=== PATIENT | male | born 1975 | race Hispanic/Latino ===

== ENCOUNTER 2019-01-20 09:01 | Outpatient (CLI) | payer OTHER ==
--- NOTE | 2019-01-20 09:25 | RAD ---
TWO VIEW CHEST: History: Cough and pneumonia. Asthma, hypertension. Comparison: Portable exam, 03-02-11. FINDINGS: Lung wilks appear clear. No infiltrate. Heart and mediastinum unremarkable. Vascular markings normal . Osseous structures unremarkable. IMPRESSION: Unremarkable chest. POS: [facility] [place]
--- NOTE | 2019-01-20 09:47 | RAD ---
THREE VIEW PARANASAL SINUS SERIES: INDICATION: Chronic pansinusitis. FINDINGS: There is no evidence of a discrete fluid level of the visualized paranasal sinus. Mastoid air cells are clear. No acute osseous abnormality. IMPRESSION: No acute fluid level of the imaged paranasal sinuses. POS: [facility]
== END 2019-01-20 09:02 | disposition home or self-care (01) ==
LOC: BICRAD 09:01
PROVIDERS: ATTEND Family Medicine
DX: J32.4 Chronic pansinusitis (principal); I10 Essential (primary) hypertension; J45.41 Moderate persistent asthma with (acute) exacerbation; J18.9 Pneumonia, unspecified organism; R05 Cough
CPT/HCPCS: 70220; 71046

== ENCOUNTER 2022-03-07 13:21 | Inpatient (IN) | payer OTHER ==
[2022-03-07] MEDS ORDERED: Tranexamic Acid 1,000 MG/10 ML VIAL ONE (13:27)
[2022-03-07] MEDS ORDERED: ceFAZolin (BATCH) 2 GM/100 ML BAG ONE ×2 (13:27→19:46)
[2022-03-07] MEDS ORDERED: Boostrix 0.5 ML (Tdap) VIAL ONE (13:29)
[2022-03-07] MEDS ORDERED: Fentanyl 100 MCG/2 ML VIAL ONE ×2 (13:40→14:33)
[2022-03-07 13:43] LABS: #Eosinphils 0.2 thou/uL (0.0-0.7); #Lymphocytes 3.9 thou/uL (1.20-3.40); #Monocytes 0.8 thou/uL (0.11-0.59); #Neutrophils 14.8 thou/uL (1.40-6.50); %Basophils 0.2 % (0.0-1.0); %Eosinophils 1.2 % (0.0-10.0); %Lymphocytes 19.7 % (21.0-51.0); %Monocytes 4.2 % (0.0-10.0); %Neutrophils 74.6 % (42.0-75.0); Mean Corpuscular HGB CONC 32.5 g/dL (32.0-36.0); Mean Corpuscular Hemoglobin 29.4 pg (27.0-31.0); Mean Corpuscular Volume 90.5 fL (78.0-98.0); Mean Platelet Volume 7.3 fL (7.4-10.4); Platelet Count 311 thou/uL (130-400); RBC Distribution Width 11.8 % (11.5-14.5); Red Blood Cell (RBC) Count 4.74 mill/uL (4.70-6.10); White Blood Cell (WBC) Count 19.9 thou/uL (4.8-10.8)
[2022-03-07 13:53] LABS: INR-International Normal Ratio 1.1; Prothrombin Time 13.9 sec (12.0-14.7)
[2022-03-07 13:54] LABS: PTT 29.3 sec (22.9-36.1)
[2022-03-07 13:59] LABS: ALT (SGPT) 61 U/L (8-55); AST (SGOT) 76 U/L (5-34); Albumin 3.9 g/dL (3.5-5.0); Alkaline Phosphatase 57 U/L (40-110); Anion Gap 14 mmol/L (10-20); BUN (Urea Nitrogen) 16 mg/dL (8.9-20.6); Bilirubin, Total 0.7 mg/dL (0.2-1.2); Calc. Creatinine Clearance 0 mL/min (70-130); Calcium 8.3 mg/dL (7.8-10.44); Carbon Dioxide 22 mmol/L (22-29); Chloride 108 mmol/L (98-107); Globulin 2.2 g/dL (2.4-3.5); Glucose 176 mg/dL (70-105); Lipase 71 U/L (8-78); Magnesium 1.9 mg/dL (1.6-2.6); Potassium 3.6 mmol/L (3.5-5.1); Protein, Total 6.1 g/dL (6.0-8.3); Sodium 140 mmol/L (136-145)
[2022-03-07 14:02] LABS: Acetaminophen Less than 10.0 mcg/mL (10.0-30.0); Alcohol Less than 10 mg/dL (Less than 10); Salicylate Less than 8.0 mg/dL (15.0-30.0)
[2022-03-07] MEDS ORDERED: Ondansetron ODT 4 MG TAB PO PRN (14:11)
[2022-03-07] MEDS ORDERED: Promethazine HCl 25 MG/ML VIAL IM PRN (14:11)
[2022-03-07] MEDS ORDERED: Ondansetron PF 4 MG/2 ML Vial IVP PRN (14:11)
[2022-03-07] MEDS ORDERED: Morphine 2 MG/ML VIAL SLOW IVP PRN (14:11)
[2022-03-07] MEDS ORDERED: hydrALAZINE 20 MG/ML VIAL SLOW IVP PRN (14:11)
[2022-03-07] MEDS ORDERED: Sodium Chloride 0.9% 1,000 ML IV SCH (14:15)
[2022-03-07 14:30] LABS: Bacteria/HPF None Seen HPF (None Seen); Bilirubin Negative (Negative); Blood, Urine 2+ (Negative); Clarity Clear (Clear); Glucose, Urine (Dipstick) 50 mg/dL (Negative); Ketone, Urine Negative (Negative); Leukocyte Negative Leu/uL (Negative); Nitrite Negative (Negative); Protein, Urine (Dipstick) 100 mg/dL (Neg-Trace); RBC/HPF 21-50 HPF (0-3); Specific Gravity, Urine 1.035 (1.002-1.036); Squamous Epithelial 0-3 HPF (0-3); Urobilinogen Normal mg/dL (Less than 2)
[2022-03-07] MEDS ORDERED: Midazolam HCl 2 mg/2 ml Vial ONE (14:33)
[2022-03-07 14:49] LABS: Amphetamine Not Detected (NotDetected); Barbiturates Screen Not Detected (NotDetected); Benzodiazepine Screen Not Detected (NotDetected); Cocaine Metabolite Screen Not Detected (NotDetected); Methadone Not Detected (NotDetected); Methamphetamine Not Detected (NotDetected); Opiate Screen Not Detected (NotDetected); Oxycodone Screen Not Detected (NotDetected); Phencyclidine (PCP) Not Detected (NotDetected); THC/Cannabinoid Screen Not Detected (NotDetected); Tricyclic Screen Not Detected (NotDetected)
[2022-03-07] MEDS ORDERED: Acetaminophen 500 MG TAB PO SCH (15:00)
[2022-03-07 15:11] LABS: SARS-CoV-2 NAA Rapid Test Not Detected (NotDetected)
[2022-03-07] MEDS ORDERED: traMADol HCl 50 MG TAB PO PRN (15:12)
[2022-03-07] MEDS ORDERED: Ketorolac Tromethamine 30 MG/ML VIAL IVP SCH (15:15)
[2022-03-07] MEDS ORDERED: HYDROmorphone 2 MG/ML VIAL ONE (16:10)
[2022-03-07] MEDS ORDERED: ePHEDrine 50 MG/ML VIAL ONE (16:13)
[2022-03-07] MEDS ORDERED: Esmolol 100 MG/10 ML VIAL ONE (16:13)
[2022-03-07] MEDS ORDERED: Rocuronium Bromide 10 MG/ML (10ML VIAL) ONE (16:13)
[2022-03-07] MEDS ORDERED: Vecuronium 10 MG VIAL ONE (16:13)
[2022-03-07] MEDS ORDERED: Ondansetron PF 4 MG/2 ML Vial ONE (16:13)
[2022-03-07] MEDS ORDERED: PHENYLEPHRINE-NS 100 MCG/ML 10 ML SYRINGE ONE ×2 (16:13→22:23)
[2022-03-07] MEDS ORDERED: Lidocaine 1% PF 5 ML VIAL ONE (16:13)
[2022-03-07] MEDS ORDERED: PROPOFOL 200 MG/20 ML VIAL ONE (16:13)
[2022-03-07] MEDS ORDERED: Albumin 5% 1,000 ML ONE (17:44)
[2022-03-07] MEDS ORDERED: Neomycin-Polymyxin 1 ML AMP ONE (19:41)
[2022-03-07] MEDS ORDERED: Gentamicin Sulfate 80 MG in Premix Bag 1 BAG IVPB SCH (19:45)
[2022-03-07] MEDS ORDERED: Phenylephrine 10 MG/ML VIAL ONE (20:53)
[2022-03-07] MEDS ORDERED: Bacitracin Zinc Ointment 30 gm TUBE ONE (21:22)
[2022-03-07] MEDS ORDERED: ceFAZolin (BATCH) 2 GM in Premix Bag 1 BAG IVPB SCH (22:00)
[2022-03-08] MEDS ORDERED: ceFAZolin (BATCH) 2 GM/100 ML BAG ONE (00:02)
[2022-03-08] MEDS ORDERED: fentaNYL Citrate/PF 100 MCG/2 ML SYRINGE ONE (00:40)
[2022-03-08] MEDS ORDERED: Bupivacaine PF 0.5% 30 ML VIAL ONE (01:28)
[2022-03-08] MEDS ORDERED: Ondansetron HCl/PF 4 MG/2 ML Vial IVP PRN (02:51)
[2022-03-08] MEDS ORDERED: fentaNYL Citrate/PF 2,000 MCG in Sodium Chloride 0.9% 60 ML IV PRN (02:51)
[2022-03-08] MEDS ORDERED: Promethazine HCl 25 MG/ML VIAL IM PRN ×2 (02:51)
[2022-03-08] MEDS ORDERED: Promethazine HCl 25 MG/ML VIAL IVPB PRN (02:51)
[2022-03-08] MEDS ORDERED: diphenhydrAMINE 50 MG/ML VIAL IM PRN (02:51)
[2022-03-08] MEDS ORDERED: diphenhydrAMINE 50 MG/ML VIAL IVP PRN (02:51)
[2022-03-08] MEDS ORDERED: diphenhydrAMINE 25 MG CAP PO PRN (02:51)
[2022-03-08] MEDS ORDERED: Zolpidem Tartrate 5 MG TAB PO PRN (02:51)
[2022-03-08] MEDS ORDERED: Ondansetron PF 4 MG/2 ML Vial IVP PRN (02:51)
[2022-03-08] MEDS ORDERED: Naloxone HCl 0.4 mg/ml Vial IV PRN (02:51)
[2022-03-08] MEDS ORDERED: Communication Order-Pharmacy FS SCH (03:00)
[2022-03-08] MEDS ORDERED: Fentanyl 100 MCG/2 ML VIAL ONE (03:18)
[2022-03-08] MEDS ORDERED: Ketorolac Tromethamine 30 MG/ML VIAL ONE (03:25)
[2022-03-08] MEDS: Ketorolac Tromethamine 30 MG/ML VIAL IVP SCH ×5 (03:35→22:09)
[2022-03-08] MEDS ORDERED: ceFAZolin 2 GM/Dextrose 50 ML 2 GM in Premix Bag 1 BAG IVPB SCH (04:00)
[2022-03-08 04:06] LABS: INR-International Normal Ratio 1.2; PTT 30.8 sec (22.9-36.1); Prothrombin Time 15.2 sec (12.0-14.7)
[2022-03-08 04:07] LABS: Anion Gap 16 mmol/L (10-20); BUN (Urea Nitrogen) 18 mg/dL (8.9-20.6); Calc. Creatinine Clearance 0 mL/min (70-130); Calcium 7.8 mg/dL (7.8-10.44); Carbon Dioxide 19 mmol/L (22-29); Chloride 109 mmol/L (98-107); Glucose 185 mg/dL (70-105); Magnesium 1.7 mg/dL (1.6-2.6); Phosphorus 3.1 mg/dL (2.3-4.7); Potassium 4.3 mmol/L (3.5-5.1); Sodium 140 mmol/L (136-145)
[2022-03-08 04:10] LABS: #Lymphocytes 0.8 thou/uL (1.20-3.40); #Monocytes 0.6 thou/uL (0.11-0.59); #Neutrophils 7.5 thou/uL (1.40-6.50); %Basophils 0.1 % (0.0-1.0); %Eosinophils 0.2 % (0.0-10.0); %Lymphocytes 9.2 % (21.0-51.0); %Monocytes 6.8 % (0.0-10.0); %Neutrophils 83.7 % (42.0-75.0); Hemoglobin 11.4 g/dL (14.0-18.0); Mean Corpuscular HGB CONC 33.5 g/dL (32.0-36.0); Mean Corpuscular Hemoglobin 30.2 pg (27.0-31.0); Mean Corpuscular Volume 90.3 fL (78.0-98.0); Mean Platelet Volume 7.2 fL (7.4-10.4); Platelet Count 195 thou/uL (130-400); RBC Distribution Width 12.2 % (11.5-14.5); Red Blood Cell (RBC) Count 3.78 mill/uL (4.70-6.10); White Blood Cell (WBC) Count 8.9 thou/uL (4.8-10.8)
[2022-03-08 04:19] LABS: Lactic Acid 5.4 mmol/L (0.5-2.2)
[2022-03-08] MEDS ORDERED: Magnesium 2 GM/50 ML(in water) 2 GM in Premix Bag 1 BAG IVPB SCH (04:30)
[2022-03-08] MEDS: Sodium Chloride 0.9% 1,000 ML IV SCH ×3 (04:35→12:53)
[2022-03-08] MEDS: Acetaminophen 500 MG TAB PO SCH ×4 (04:35→09:37)
[2022-03-08] MEDS: Gabapentin 300 MG CAP PO SCH ×4 (04:36→22:07)
[2022-03-08] MEDS: Famotidine/PF 20 mg/2ml Vial SLOW IVP SCH ×2 (04:36→09:36)
[2022-03-08] MEDS: tiZANidine HCl 4 MG TAB PO SCH ×3 (04:37→22:08)
[2022-03-08] MEDS: Senokot S 8.6-50 MG TAB PO SCH ×3 (04:37→22:08)
[2022-03-08] MEDS ORDERED: Sodium Chloride 0.9% 1,000 ML IV SCH ×2 (04:45→13:00)
[2022-03-08] MEDS ORDERED: Sodium Phosphate 15 MMOL in Sodium Chloride 0.9% 250 ML 250 ML IVPB SCH (05:00)
[2022-03-08] MEDS: ceFAZolin (BATCH) 2 GM in Premix Bag 1 BAG IVPB SCH ×3 (05:01→22:07)
[2022-03-08 07:48] VITALS: BMI 38.5
[2022-03-08] MEDS: Polyethylene Glycol 3350 17 GM Packet PO SCH (09:35)
[2022-03-08 12:45] LABS: Lactic Acid 1.6 mmol/L (0.5-2.2)
[2022-03-08] MEDS ORDERED: Lactated Ringer's 1,000 ML IV SCH (13:00)
[2022-03-08] MEDS ORDERED: traMADol HCl 50 MG TAB PO PRN (14:16)
[2022-03-08] MEDS: Acetaminophen 325 MG TAB PO SCH ×2 (15:16→22:08)
[2022-03-08 16:06] LABS: #Lymphocytes 1.2 thou/uL (1.20-3.40); #Monocytes 0.7 thou/uL (0.11-0.59); #Neutrophils 5.2 thou/uL (1.40-6.50); %Basophils 0.3 % (0.0-1.0); %Eosinophils 0.2 % (0.0-10.0); %Lymphocytes 16.9 % (21.0-51.0); %Monocytes 9.8 % (0.0-10.0); %Neutrophils 72.7 % (42.0-75.0); Hemoglobin 9.7 g/dL (14.0-18.0); Mean Corpuscular Hemoglobin 30.3 pg (27.0-31.0); Mean Platelet Volume 7.2 fL (7.4-10.4); Platelet Count 144 thou/uL (130-400); RBC Distribution Width 12.1 % (11.5-14.5); White Blood Cell (WBC) Count 7.1 thou/uL (4.8-10.8)
[2022-03-08 16:25] LABS: Lactic Acid 2.7 mmol/L (0.5-2.2)
[2022-03-08 16:32] LABS: Anion Gap 13 mmol/L (10-20); BUN (Urea Nitrogen) 17 mg/dL (8.9-20.6); Calc. Creatinine Clearance 173 mL/min (70-130); Calcium 7.5 mg/dL (7.8-10.44); Carbon Dioxide 21 mmol/L (22-29); Chloride 110 mmol/L (98-107); Glucose 116 mg/dL (70-105); Magnesium 2.2 mg/dL (1.6-2.6); Phosphorus 2.9 mg/dL (2.3-4.7); Potassium 3.8 mmol/L (3.5-5.1); Sodium 140 mmol/L (136-145)
[2022-03-08 16:45] LABS: CK (CPK) 6150 U/L (30-200)
[2022-03-08] MEDS ORDERED: Sodium Bicarbonate 100 MEQ in Dextrose 5% in Water 1,000 ML IV SCH (17:15)
[2022-03-08] MEDS: traMADol HCl 50 MG TAB PO SCH (18:04)
[2022-03-08] MEDS: Famotidine 20 MG TAB PO SCH (22:08)
[2022-03-09] MEDS: traMADol HCl 50 MG TAB PO SCH ×5 (00:49→20:09)
[2022-03-09] MEDS: Acetaminophen 325 MG TAB PO SCH ×4 (03:10→21:13)
[2022-03-09] MEDS: Ketorolac Tromethamine 30 MG/ML VIAL IVP SCH ×4 (03:11→20:11)
[2022-03-09 05:38] LABS: #Eosinphils 0.1 thou/uL (0.0-0.7); #Lymphocytes 1.2 thou/uL (1.20-3.40); #Monocytes 0.6 thou/uL (0.11-0.59); #Neutrophils 6.4 thou/uL (1.40-6.50); %Basophils 0.2 % (0.0-1.0); %Eosinophils 1.2 % (0.0-10.0); %Lymphocytes 14.5 % (21.0-51.0); %Monocytes 7.2 % (0.0-10.0); %Neutrophils 76.9 % (42.0-75.0); Hemoglobin 8.8 g/dL (14.0-18.0); Mean Corpuscular HGB CONC 32.6 g/dL (32.0-36.0); Mean Corpuscular Volume 92.1 fL (78.0-98.0); Mean Platelet Volume 7.6 fL (7.4-10.4); Platelet Count 141 thou/uL (130-400); RBC Distribution Width 12.4 % (11.5-14.5); Red Blood Cell (RBC) Count 2.93 mill/uL (4.70-6.10); White Blood Cell (WBC) Count 8.3 thou/uL (4.8-10.8)
[2022-03-09] MEDS ORDERED: Morphine 2 MG/ML VIAL SLOW IVP PRN (06:00)
[2022-03-09 06:16] LABS: ALT (SGPT) 50 U/L (8-55); AST (SGOT) 121 U/L (5-34); Albumin 3.2 g/dL (3.5-5.0); Alkaline Phosphatase 43 U/L (40-110); Bilirubin, Direct 0.4 mg/dL (0.1-0.3); Bilirubin, Total 0.9 mg/dL (0.2-1.2)
[2022-03-09 06:26] LABS: CK (CPK) 7103 U/L (30-200)
[2022-03-09 06:31] LABS: Anion Gap 8 mmol/L (10-20); BUN (Urea Nitrogen) 15 mg/dL (8.9-20.6); Calc. Creatinine Clearance 210 mL/min (70-130); Calcium 6.9 mg/dL (7.8-10.44); Carbon Dioxide 27 mmol/L (22-29); Chloride 107 mmol/L (98-107); Glucose 131 mg/dL (70-105); Magnesium 2.2 mg/dL (1.6-2.6); Potassium 3.4 mmol/L (3.5-5.1); Sodium 139 mmol/L (136-145)
[2022-03-09] MEDS ORDERED: Lactated Ringer's 1,000 ML IV SCH (06:45)
[2022-03-09] MEDS ORDERED: Potassium Phosphate 30 MMOL in Sodium Chloride 0.9% 250 ML 250 ML IVPB SCH (08:00)
[2022-03-09] MEDS ORDERED: Potassium Chloride 10 MEQ in Premix Bag 1 BAG IVPB SCH (08:00)
[2022-03-09] MEDS ORDERED: Potassium Chloride 20 MEQ in Premix Bag 1 BAG IVPB SCH (08:00)
[2022-03-09] MEDS: Senokot S 8.6-50 MG TAB PO SCH ×2 (08:36→20:13)
[2022-03-09] MEDS: Ascorbic Acid 500 mg Chewable Tablet PO SCH (08:36)
[2022-03-09] MEDS: tiZANidine HCl 4 MG TAB PO SCH ×2 (08:36→20:13)
[2022-03-09] MEDS: Gabapentin 300 MG CAP PO SCH ×3 (08:37→20:11)
[2022-03-09] MEDS: Famotidine 20 MG TAB PO SCH ×2 (08:37→20:10)
[2022-03-09] MEDS: Ferrous Sulfate 325 MG TAB PO SCH (08:37)
[2022-03-09] MEDS: Polyethylene Glycol 3350 17 GM Packet PO SCH (08:39)
[2022-03-09] MEDS: ceFAZolin (BATCH) 2 GM in Premix Bag 1 BAG IVPB SCH ×3 (08:41→23:34)
[2022-03-09] MEDS: Enoxaparin Sodium 40 MG/0.4 ML SYRINGE SC SCH (09:00)
[2022-03-09] MEDS ORDERED: Furosemide 20 MG/2 ML VIAL SLOW IVP SCH (09:00)
[2022-03-09] MEDS ORDERED: Potassium Chloride 20 MEQ TAB PO SCH (10:30)
[2022-03-09] MEDS: Lactated Ringer's 1,000 ML IV SCH ×2 (16:00→23:32)
[2022-03-09 17:04] LABS: Anion Gap 15 mmol/L (10-20); BUN (Urea Nitrogen) 17 mg/dL (8.9-20.6); Calc. Creatinine Clearance 193 mL/min (70-130); Calcium 8.3 mg/dL (7.8-10.44); Carbon Dioxide 23 mmol/L (22-29); Chloride 103 mmol/L (98-107); Glucose 117 mg/dL (70-105); Magnesium 2.3 mg/dL (1.6-2.6); Phosphorus 2.8 mg/dL (2.3-4.7); Potassium 4.2 mmol/L (3.5-5.1); Sodium 137 mmol/L (136-145)
[2022-03-09] MEDS: Tamsulosin HCl 0.4 MG CAP PO SCH (20:13)
[2022-03-10] MEDS: traMADol HCl 50 MG TAB PO SCH ×4 (01:52→20:13)
[2022-03-10] MEDS: Ketorolac Tromethamine 30 MG/ML VIAL IVP SCH (01:52)
[2022-03-10] MEDS: Acetaminophen 325 MG TAB PO SCH ×3 (04:20→18:46)
[2022-03-10] MEDS ORDERED: Ketorolac Tromethamine 30 MG/ML VIAL IVP PRN (07:34)
[2022-03-10] MEDS ORDERED: Morphine 2 MG/ML VIAL SLOW IVP SCH (07:35)
[2022-03-10] MEDS ORDERED: Ketorolac Tromethamine 30 MG/ML VIAL IVP SCH (07:45)
[2022-03-10] MEDS: ceFAZolin (BATCH) 2 GM in Premix Bag 1 BAG IVPB SCH ×2 (08:55→16:00)
[2022-03-10] MEDS ORDERED: Lisinopril 20 MG TAB PO SCH ×2 (09:00)
[2022-03-10] MEDS: Ferrous Sulfate 325 MG TAB PO SCH (09:01)
[2022-03-10] MEDS: Ascorbic Acid 500 mg Chewable Tablet PO SCH (09:01)
[2022-03-10] MEDS: Famotidine 20 MG TAB PO SCH ×2 (09:02→20:14)
[2022-03-10] MEDS: Gabapentin 300 MG CAP PO SCH ×3 (09:02→20:14)
[2022-03-10] MEDS: Polyethylene Glycol 3350 17 GM Packet PO SCH (09:04)
[2022-03-10] MEDS: Senokot S 8.6-50 MG TAB PO SCH ×2 (09:06→20:15)
[2022-03-10] MEDS: Lactated Ringer's 1,000 ML IV SCH ×3 (09:06→18:47)
[2022-03-10] MEDS: Enoxaparin Sodium 40 MG/0.4 ML SYRINGE SC SCH (09:31)
[2022-03-10] MEDS ORDERED: Furosemide 40 MG/4 ML VIAL SLOW IVP SCH ×2 (09:45→18:00)
[2022-03-10] MEDS: tiZANidine HCl 4 MG TAB PO SCH ×2 (10:03→18:45)
[2022-03-10 12:08] LABS: #Eosinphils 0.2 thou/uL (0.0-0.7); #Lymphocytes 1.3 thou/uL (1.20-3.40); #Monocytes 0.4 thou/uL (0.11-0.59); #Neutrophils 6.4 thou/uL (1.40-6.50); %Basophils 0.2 % (0.0-1.0); %Eosinophils 2.4 % (0.0-10.0); %Monocytes 5.1 % (0.0-10.0); %Neutrophils 77.3 % (42.0-75.0); Hemoglobin 8.8 g/dL (14.0-18.0); Mean Corpuscular HGB CONC 33.3 g/dL (32.0-36.0); Mean Corpuscular Hemoglobin 30.6 pg (27.0-31.0); Mean Corpuscular Volume 91.8 fL (78.0-98.0); Mean Platelet Volume 7.7 fL (7.4-10.4); Platelet Count 150 thou/uL (130-400); Red Blood Cell (RBC) Count 2.86 mill/uL (4.70-6.10); White Blood Cell (WBC) Count 8.3 thou/uL (4.8-10.8)
[2022-03-10 12:21] LABS: Anion Gap 12 mmol/L (10-20); BUN (Urea Nitrogen) 14 mg/dL (8.9-20.6); Calc. Creatinine Clearance 204 mL/min (70-130); Calcium 8.2 mg/dL (7.8-10.44); Carbon Dioxide 28 mmol/L (22-29); Chloride 100 mmol/L (98-107); Glucose 141 mg/dL (70-105); Magnesium 2.1 mg/dL (1.6-2.6); Phosphorus 2.1 mg/dL (2.3-4.7); Potassium 3.7 mmol/L (3.5-5.1); Sodium 136 mmol/L (136-145)
[2022-03-10 12:30] LABS: CK (CPK) 5846 U/L (30-200)
[2022-03-10] MEDS: Morphine 2 MG/ML VIAL SLOW IVP PRN (16:14)
[2022-03-10] MEDS ORDERED: Potassium Chloride 20 MEQ TAB PO SCH (17:00)
[2022-03-10 17:39] LABS: Anion Gap 14 mmol/L (10-20); BUN (Urea Nitrogen) 13 mg/dL (8.9-20.6); Calc. Creatinine Clearance 193 mL/min (70-130); Calcium 8.1 mg/dL (7.8-10.44); Carbon Dioxide 27 mmol/L (22-29); Chloride 99 mmol/L (98-107); Glucose 119 mg/dL (70-105); Magnesium 2.2 mg/dL (1.6-2.6); Phosphorus 2.5 mg/dL (2.3-4.7); Sodium 136 mmol/L (136-145)
[2022-03-10] MEDS ORDERED: methylPREDNISolone Sod Succ 40 MG VIAL IVP ONE (18:00)
[2022-03-10] MEDS: Acetaminophen/Codeine 30-300mg Tablet PO SCH ×2 (18:08→23:47)
[2022-03-10] MEDS: Tamsulosin HCl 0.4 MG CAP PO SCH (20:15)
[2022-03-10] MEDS ORDERED: tiZANidine HCl 4 MG TAB PO SCH (21:00)
[2022-03-11] MEDS: ceFAZolin (BATCH) 2 GM in Premix Bag 1 BAG IVPB SCH ×4 (01:01→23:43)
[2022-03-11] MEDS: traMADol HCl 50 MG TAB PO SCH (02:19)
[2022-03-11] MEDS: Acetaminophen/Codeine 30-300mg Tablet PO SCH ×4 (05:48→23:42)
[2022-03-11 06:12] LABS: #Lymphocytes 0.6 thou/uL (1.20-3.40); #Monocytes 0.4 thou/uL (0.11-0.59); #Neutrophils 5.1 thou/uL (1.40-6.50); %Basophils 0.4 % (0.0-1.0); %Eosinophils 0.3 % (0.0-10.0); %Monocytes 5.9 % (0.0-10.0); %Neutrophils 83.4 % (42.0-75.0); Hemoglobin 8.1 g/dL (14.0-18.0); Mean Corpuscular HGB CONC 33.1 g/dL (32.0-36.0); Mean Corpuscular Hemoglobin 30.3 pg (27.0-31.0); Mean Corpuscular Volume 91.4 fL (78.0-98.0); Mean Platelet Volume 7.5 fL (7.4-10.4); Platelet Count 176 thou/uL (130-400); RBC Distribution Width 11.9 % (11.5-14.5); Red Blood Cell (RBC) Count 2.68 mill/uL (4.70-6.10); White Blood Cell (WBC) Count 6.1 thou/uL (4.8-10.8)
[2022-03-11 06:33] LABS: Anion Gap 13 mmol/L (10-20); BUN (Urea Nitrogen) 14 mg/dL (8.9-20.6); Calc. Creatinine Clearance 222 mL/min (70-130); Carbon Dioxide 28 mmol/L (22-29); Chloride 99 mmol/L (98-107); Glucose 144 mg/dL (70-105); Magnesium 2.2 mg/dL (1.6-2.6); Phosphorus 2.8 mg/dL (2.3-4.7); Potassium 4.6 mmol/L (3.5-5.1); Sodium 135 mmol/L (136-145)
[2022-03-11] MEDS ORDERED: tiZANidine HCl 4 MG TAB PO PRN (07:52)
[2022-03-11] MEDS ORDERED: Furosemide 40 MG/4 ML VIAL SLOW IVP SCH (08:00)
[2022-03-11] MEDS: Enoxaparin Sodium 40 MG/0.4 ML SYRINGE SC SCH (08:38)
[2022-03-11] MEDS: Ascorbic Acid 500 mg Chewable Tablet PO SCH ×2 (08:38→21:23)
[2022-03-11] MEDS: Gabapentin 300 MG CAP PO SCH ×3 (08:40→21:23)
[2022-03-11] MEDS: traMADol HCl 50 MG TAB PO PRN (08:40)
[2022-03-11] MEDS: Famotidine 20 MG TAB PO SCH ×2 (08:41→21:23)
[2022-03-11] MEDS: Senokot S 8.6-50 MG TAB PO SCH ×2 (08:41→19:31)
[2022-03-11] MEDS: Ferrous Sulfate 325 MG TAB PO SCH ×2 (08:41→18:21)
[2022-03-11] MEDS: Polyethylene Glycol 3350 17 GM Packet PO SCH (10:53)
[2022-03-11] MEDS: Morphine 2 MG/ML VIAL SLOW IVP PRN (11:01)
[2022-03-11] MEDS ORDERED: Ketorolac Tromethamine 30 MG/ML VIAL IVP SCH (12:00)
[2022-03-11] MEDS: Tamsulosin HCl 0.4 MG CAP PO SCH (21:23)
[2022-03-11] MEDS: tiZANidine HCl 4 MG TAB PO SCH (21:23)
[2022-03-11] MEDS: Ibuprofen 200 MG TAB PO SCH (21:43)
[2022-03-12] MEDS: Ibuprofen 200 MG TAB PO SCH ×3 (04:30→21:14)
[2022-03-12] MEDS: Acetaminophen/Codeine 30-300mg Tablet PO SCH ×4 (04:31→23:47)
[2022-03-12] MEDS: Morphine 2 MG/ML VIAL SLOW IVP PRN (04:31)
[2022-03-12 05:25] LABS: Anion Gap 15 mmol/L (10-20); BUN (Urea Nitrogen) 18 mg/dL (8.9-20.6); Calc. Creatinine Clearance 225 mL/min (70-130); Calcium 8.1 mg/dL (7.8-10.44); Carbon Dioxide 20 mmol/L (22-29); Chloride 100 mmol/L (98-107); Glucose 115 mg/dL (70-105); Magnesium 2.1 mg/dL (1.6-2.6); Phosphorus 3.6 mg/dL (2.3-4.7); Sodium 131 mmol/L (136-145)
[2022-03-12 06:41] LABS: #Eosinphils 0.3 thou/uL (0.0-0.7); #Monocytes 0.9 thou/uL (0.11-0.59); #Neutrophils 6.3 thou/uL (1.40-6.50); %Basophils 0.3 % (0.0-1.0); %Eosinophils 3.2 % (0.0-10.0); %Lymphocytes 20.8 % (21.0-51.0); %Monocytes 9.1 % (0.0-10.0); %Neutrophils 66.5 % (42.0-75.0); Hemoglobin 8.8 g/dL (14.0-18.0); Mean Corpuscular HGB CONC 32.6 g/dL (32.0-36.0); Mean Corpuscular Hemoglobin 30.4 pg (27.0-31.0); Mean Corpuscular Volume 93.3 fL (78.0-98.0); Mean Platelet Volume 6.8 fL (7.4-10.4); Platelet Count 238 thou/uL (130-400); RBC Distribution Width 12.3 % (11.5-14.5); White Blood Cell (WBC) Count 9.5 thou/uL (4.8-10.8)
[2022-03-12] MEDS: traMADol HCl 50 MG TAB PO SCH (07:40)
[2022-03-12] MEDS: Famotidine 20 MG TAB PO SCH ×2 (08:35→21:08)
[2022-03-12] MEDS: Ferrous Sulfate 325 MG TAB PO SCH ×3 (08:35→21:08)
[2022-03-12] MEDS: Enoxaparin Sodium 40 MG/0.4 ML SYRINGE SC SCH (08:35)
[2022-03-12] MEDS: Gabapentin 300 MG CAP PO SCH ×3 (08:36→21:08)
[2022-03-12] MEDS: traMADol HCl 50 MG TAB PO PRN ×2 (08:36→15:29)
[2022-03-12] MEDS: tiZANidine HCl 4 MG TAB PO SCH ×2 (08:37→21:13)
[2022-03-12] MEDS: Ascorbic Acid 500 mg Chewable Tablet PO SCH ×2 (08:37→21:08)
[2022-03-12] MEDS: Senokot S 8.6-50 MG TAB PO SCH ×2 (08:37→21:13)
[2022-03-12] MEDS: Polyethylene Glycol 3350 17 GM Packet PO SCH (08:37)
[2022-03-12] MEDS ORDERED: Lisinopril 20 MG TAB PO SCH (09:00)
[2022-03-12] MEDS: ceFAZolin (BATCH) 2 GM in Premix Bag 1 BAG IVPB SCH (16:52)
[2022-03-12] MEDS: cloNIDine 0.1 MG TAB PO SCH ×2 (17:59→23:47)
[2022-03-12] MEDS: Lisinopril 20 MG TAB PO SCH (21:10)
[2022-03-12] MEDS: Tamsulosin HCl 0.4 MG CAP PO SCH (21:13)
[2022-03-13] MEDS: traMADol HCl 50 MG TAB PO PRN (00:19)
[2022-03-13] MEDS: Acetaminophen/Codeine 30-300mg Tablet PO SCH ×4 (05:31→23:04)
[2022-03-13] MEDS: cloNIDine 0.1 MG TAB PO SCH ×3 (05:31→21:31)
[2022-03-13] MEDS: Ibuprofen 200 MG TAB PO SCH ×3 (05:32→21:31)
[2022-03-13] MEDS: Ascorbic Acid 500 mg Chewable Tablet PO SCH ×2 (08:19→21:28)
[2022-03-13] MEDS: Gabapentin 300 MG CAP PO SCH ×3 (08:19→21:29)
[2022-03-13] MEDS: tiZANidine HCl 4 MG TAB PO SCH ×2 (08:19→21:32)
[2022-03-13] MEDS: Famotidine 20 MG TAB PO SCH ×2 (08:20→21:29)
[2022-03-13] MEDS: Lisinopril 20 MG TAB PO SCH ×2 (08:20→21:29)
[2022-03-13] MEDS: Senokot S 8.6-50 MG TAB PO SCH ×2 (08:20→21:33)
[2022-03-13] MEDS: Enoxaparin Sodium 40 MG/0.4 ML SYRINGE SC SCH (08:22)
[2022-03-13] MEDS: Ferrous Sulfate 325 MG TAB PO SCH ×2 (08:27→21:29)
[2022-03-13] MEDS: Polyethylene Glycol 3350 17 GM Packet PO SCH (08:29)
[2022-03-13] MEDS: Tamsulosin HCl 0.4 MG CAP PO SCH (21:29)
[2022-03-14] MEDS: Acetaminophen/Codeine 30-300mg Tablet PO SCH ×3 (05:28→17:57)
[2022-03-14] MEDS: Ibuprofen 200 MG TAB PO SCH ×3 (05:29→21:05)
[2022-03-14] MEDS ORDERED: Lorazepam 0.5 MG TAB PO PRN (08:55)
[2022-03-14] MEDS: Gabapentin 300 MG CAP PO SCH ×3 (10:35→21:09)
[2022-03-14] MEDS: Senokot S 8.6-50 MG TAB PO SCH ×2 (10:36→21:08)
[2022-03-14] MEDS: Famotidine 20 MG TAB PO SCH ×2 (10:36→21:05)
[2022-03-14] MEDS: cloNIDine 0.1 MG TAB PO SCH ×2 (10:37→21:08)
[2022-03-14] MEDS: tiZANidine HCl 4 MG TAB PO SCH ×2 (10:37→21:09)
[2022-03-14] MEDS: Enoxaparin Sodium 40 MG/0.4 ML SYRINGE SC SCH (10:37)
[2022-03-14] MEDS: Lisinopril 20 MG TAB PO SCH ×2 (10:37→21:09)
[2022-03-14] MEDS: Polyethylene Glycol 3350 17 GM Packet PO SCH (10:37)
[2022-03-14] MEDS: Ferrous Sulfate 325 MG TAB PO SCH ×2 (12:11→21:07)
[2022-03-14] MEDS: Ascorbic Acid 500 mg Chewable Tablet PO SCH ×2 (12:12→21:05)
[2022-03-14 12:13] LABS: SARS-CoV-2 PCR by NAA Indeterminate (NotDetected)
[2022-03-14] MEDS ORDERED: Preparation H HC 1% Cream 26 GM TUBE TOP SCH (21:00)
[2022-03-14] MEDS: Tamsulosin HCl 0.4 MG CAP PO SCH (21:07)
[2022-03-14] MEDS: traMADol HCl 50 MG TAB PO PRN (21:10)
[2022-03-14] MEDS: Hydrocortisone 1% Cream 30 GM TUBE TOP SCH (21:12)
[2022-03-15] MEDS: Acetaminophen/Codeine 30-300mg Tablet PO SCH ×4 (00:23→18:28)
[2022-03-15] MEDS: Ibuprofen 200 MG TAB PO SCH ×3 (05:23→22:05)
[2022-03-15 07:21] LABS: Hemoglobin 9.8 g/dL (14.0-18.0); Mean Corpuscular HGB CONC 32.9 g/dL (32.0-36.0); Mean Corpuscular Hemoglobin 30.5 pg (27.0-31.0); Mean Corpuscular Volume 92.7 fL (78.0-98.0); Mean Platelet Volume 6.7 fL (7.4-10.4); Platelet Count 330 thou/uL (130-400); RBC Distribution Width 13.2 % (11.5-14.5); Red Blood Cell (RBC) Count 3.21 mill/uL (4.70-6.10); White Blood Cell (WBC) Count 10.3 thou/uL (4.8-10.8)
[2022-03-15 07:42] LABS: Anion Gap 13 mmol/L (10-20); BUN (Urea Nitrogen) 20 mg/dL (8.9-20.6); Calc. Creatinine Clearance 236 mL/min (70-130); Calcium 8.8 mg/dL (7.8-10.44); Carbon Dioxide 23 mmol/L (22-29); Chloride 103 mmol/L (98-107); Glucose 104 mg/dL (70-105); Magnesium 1.9 mg/dL (1.6-2.6); Phosphorus 3.9 mg/dL (2.3-4.7); Potassium 4.2 mmol/L (3.5-5.1); Sodium 135 mmol/L (136-145)
[2022-03-15] MEDS: Gabapentin 300 MG CAP PO SCH ×3 (08:24→22:03)
[2022-03-15] MEDS: Ascorbic Acid 500 mg Chewable Tablet PO SCH ×2 (08:24→22:06)
[2022-03-15] MEDS: Enoxaparin Sodium 40 MG/0.4 ML SYRINGE SC SCH (08:24)
[2022-03-15] MEDS: tiZANidine HCl 4 MG TAB PO SCH ×2 (08:24→22:06)
[2022-03-15] MEDS: cloNIDine 0.1 MG TAB PO SCH (08:25)
[2022-03-15 08:28] LABS: Band 13 % (5-11); Eosinophils 4 % (0-10); Lymphocytes 24 % (21-51); MDiff Complete? YES; Metamyelocyte 5 % (0-0); Monocytes 8 % (0-10); Myelocyte 1 % (0-0); Neutrophil 45 % (42-75); Platelet Morphology Comment Appears Adequate; Polychromasia SLIGHT = 2-3 cells (100X) (0-2/hpf)
[2022-03-15] MEDS: Ferrous Sulfate 325 MG TAB PO SCH ×2 (08:28→22:06)
[2022-03-15] MEDS: Lisinopril 20 MG TAB PO SCH ×2 (08:28→22:07)
[2022-03-15] MEDS: Famotidine 20 MG TAB PO SCH ×2 (08:28→22:02)
[2022-03-15] MEDS: Polyethylene Glycol 3350 17 GM Packet PO SCH (08:49)
[2022-03-15] MEDS: Senokot S 8.6-50 MG TAB PO SCH ×2 (08:50→22:05)
[2022-03-15] MEDS: Amlodipine 5 MG TAB PO SCH (10:21)
[2022-03-15] MEDS: Hydrocortisone 1% Cream 30 GM TUBE TOP SCH ×2 (10:22→22:08)
[2022-03-15] MEDS ORDERED: cloNIDine 0.1 MG TAB PO SCH (21:00)
[2022-03-15] MEDS: traMADol HCl 50 MG TAB PO PRN (22:04)
[2022-03-15] MEDS: Tamsulosin HCl 0.4 MG CAP PO SCH (22:06)
[2022-03-16] MEDS: Acetaminophen/Codeine 30-300mg Tablet PO SCH ×3 (00:58→11:55)
[2022-03-16] MEDS: traMADol HCl 50 MG TAB PO PRN (03:53)
[2022-03-16] MEDS: Ibuprofen 200 MG TAB PO SCH ×2 (04:05→14:26)
[2022-03-16] MEDS: tiZANidine HCl 4 MG TAB PO SCH (08:33)
[2022-03-16] MEDS: Ascorbic Acid 500 mg Chewable Tablet PO SCH (08:33)
[2022-03-16] MEDS: Lisinopril 20 MG TAB PO SCH (08:33)
[2022-03-16] MEDS: Enoxaparin Sodium 40 MG/0.4 ML SYRINGE SC SCH (08:33)
[2022-03-16] MEDS: Famotidine 20 MG TAB PO SCH (08:34)
[2022-03-16] MEDS: Gabapentin 300 MG CAP PO SCH ×2 (08:34→15:46)
[2022-03-16] MEDS: Ferrous Sulfate 325 MG TAB PO SCH (08:34)
[2022-03-16] MEDS: Amlodipine 5 MG TAB PO SCH (08:34)
[2022-03-16] MEDS: Polyethylene Glycol 3350 17 GM Packet PO SCH (08:35)
[2022-03-16] MEDS: Hydrocortisone 1% Cream 30 GM TUBE TOP SCH (08:36)
[2022-03-16] MEDS: Senokot S 8.6-50 MG TAB PO SCH (08:41)
[2022-03-16 11:36] VITALS: TEMP 98
[2022-03-16 15:37] VITALS: BP 148/85
[2022-03-16] MEDS ORDERED: Aspirin 81 mg Enteric Coated Tablet PO SCH (21:00)
== END 2022-03-16 15:15 | DRG 956 ==
LOC: ERS 13:21 → SDC 16:07 → SURG B 03-08 04:21
PROVIDERS: ADMIT Specialist; ATTEND Specialist
PROC: 0QS906Z Reposition Left Femoral Shaft with Intramedullary Internal Fixation Device, Open Approach (ICD-10-PCS; principal; 2022-03-07)
PROC: 0PSG06Z Reposition Left Humeral Shaft with Intramedullary Internal Fixation Device, Open Approach (ICD-10-PCS; 2022-03-07)
PROC: 0PSL04Z Reposition Left Ulna with Internal Fixation Device, Open Approach (ICD-10-PCS; 2022-03-07)
PROC: 0PSJ04Z Reposition Left Radius with Internal Fixation Device, Open Approach (ICD-10-PCS; 2022-03-07)
PROC: 0PSQ04Z Reposition Left Metacarpal with Internal Fixation Device, Open Approach (ICD-10-PCS; 2022-03-07)
PROC: 0QS706Z Reposition Left Upper Femur with Intramedullary Internal Fixation Device, Open Approach (ICD-10-PCS; 2022-03-07)
PROC: 30233N1 Transfusion of Nonautologous Red Blood Cells into Peripheral Vein, Percutaneous Approach (ICD-10-PCS; 2022-03-07)
DX: S72.352A Displaced comminuted fracture of shaft of left femur, initial encounter for closed fracture (principal); Z20.822 Contact with and (suspected) exposure to COVID-19; Z23 Encounter for immunization; S52.611 Displaced fracture of right ulna styloid process; S52.512 Displaced fracture of left radial styloid process; S06.0X9A Concussion with loss of consciousness of unspecified duration, initial encounter; S27.321A Contusion of lung, unilateral, initial encounter; S22.43XA Multiple fractures of ribs, bilateral, initial encounter for closed fracture; D62 Acute posthemorrhagic anemia; S72.092A Other fracture of head and neck of left femur, initial encounter for closed fracture; T79.6XXA Traumatic ischemia of muscle, initial encounter; I10 Essential (primary) hypertension; S62.307A Unspecified fracture of fifth metacarpal bone, left hand, initial encounter for closed fracture; S81.811A Laceration without foreign body, right lower leg, initial encounter; R79.89 Other specified abnormal findings of blood chemistry; R74.01 Elevation of levels of liver transaminase levels; S83.512A Sprain of anterior cruciate ligament of left knee, initial encounter; S83.8X2A Sprain of other specified parts of left knee, initial encounter; S83.522A Sprain of posterior cruciate ligament of left knee, initial encounter; R33.9 Retention of urine, unspecified; E87.6 Hypokalemia; V43.52XA Car driver injured in collision with other type car in traffic accident, initial encounter; Y92.410 Unspecified street and highway as the place of occurrence of the external cause; Z79.899 Other long term (current) drug therapy
CPT/HCPCS: 25660; 36415; 36430; 51702; 70450; 70498; 71045; 71260; 72125; 72170; 72192; 74177; 76000; 80048; 80053; 80076; 80306; 80307; 81003; 81015; 82550; 83605; 83690; 83735; 83880; 84100; 85025; 85610; 85730; 86850; 86900; 86901; 90471; 90715; 93005; 94640; 94760; 96374; 96375; 96376; C1713; C1776; G0390; J0360; J0690; J1170; J1580; J1650; J1885; J1940; J2250; J2270; J2370; J2405; J2704; J2920; J3010; J3475; J3480; J3490; J7050; J7070; J7120; J7620; P9016; P9045; S0020; S0028; U0002; U0003; U0005

== ENCOUNTER 2022-03-28 12:16 | Outpatient (CLI) | payer OTHER | END 2022-03-28 12:17 | disposition home or self-care (01) | LOC: BICRAD 12:16 | PROVIDERS: ATTEND Surgery | DX: S22.42XD Multiple fractures of ribs, left side, subsequent encounter for fracture with routine healing (principal); V87.7XXD Person injured in collision between other specified motor vehicles (traffic), subsequent encounter | CPT/HCPCS: 71046 ==

== ENCOUNTER 2022-04-12 08:45 | Outpatient (CLI) | payer OTHER | END 2022-04-12 08:46 | disposition home or self-care (01) | LOC: LABBT 08:45 | PROVIDERS: ATTEND Orthopaedic Surgery Hand Surgery | DX: T84.84XA Pain due to internal orthopedic prosthetic devices, implants and grafts, initial encounter (principal); Z20.822 Contact with and (suspected) exposure to COVID-19 | CPT/HCPCS: U0003; U0005 ==

== ENCOUNTER 2022-04-13 13:28 | Day surgery (SDC) | payer OTHER ==
[2022-04-12 09:20] VITALS: BMI 40.6
[2022-04-13] MEDS ORDERED: Bupivacaine PF 0.5% 30 ML VIAL ONE (18:04)
[2022-04-13] MEDS ORDERED: Bacitracin Zinc Ointment 30 gm TUBE ONE (18:04)
[2022-04-13] MEDS ORDERED: Midazolam HCl 2 mg/2 ml Vial ONE (18:29)
[2022-04-13] MEDS ORDERED: fentaNYL Citrate/PF 100 MCG/2 ML SYRINGE ONE (18:29)
[2022-04-13] MEDS ORDERED: Ketorolac Tromethamine 30 MG/ML VIAL ONE (18:36)
[2022-04-13] MEDS ORDERED: Dexamethasone 20 MG/5 ML VIAL ONE (18:36)
[2022-04-13] MEDS ORDERED: PROPOFOL 200 MG/20 ML VIAL ONE (18:36)
[2022-04-13] MEDS ORDERED: Lidocaine 1% PF 5 ML VIAL ONE (18:36)
[2022-04-13] MEDS ORDERED: Ondansetron PF 4 MG/2 ML Vial ONE (18:36)
== END 2022-04-13 20:35 | disposition home or self-care (01) ==
LOC: SDC 13:28
PROVIDERS: ATTEND Orthopaedic Surgery Hand Surgery
PROC: 0RPT0JZ Removal of Synthetic Substitute from Left Carpometacarpal Joint, Open Approach (ICD-10-PCS; principal; 2022-04-13)
PROC: 0RPP04Z Removal of Internal Fixation Device from Left Wrist Joint, Open Approach (ICD-10-PCS; principal; 2022-04-13)
DX: T84.84XA Pain due to internal orthopedic prosthetic devices, implants and grafts, initial encounter (principal); T84.220A Displacement of internal fixation device of bones of hand and fingers, initial encounter; I10 Essential (primary) hypertension; Z79.899 Other long term (current) drug therapy; Y79.3 Surgical instruments, materials and orthopedic devices (including sutures) associated with adverse incidents
CPT/HCPCS: 76000; J1100; J1885; J2250; J2405; J2704; S0020

== ENCOUNTER 2022-07-02 08:19 | Emergency (ER) | payer OTHER ==
[2022-07-02 09:38] LABS: #Eosinphils 0.3 thou/uL (0.0-0.7); #Lymphocytes 2.1 thou/uL (1.20-3.40); #Monocytes 0.5 thou/uL (0.11-0.59); #Neutrophils 3.3 thou/uL (1.40-6.50); %Basophils 0.6 % (0.0-1.0); %Eosinophils 4.2 % (0.0-10.0); %Lymphocytes 33.6 % (21.0-51.0); %Monocytes 8.4 % (0.0-10.0); %Neutrophils 53.2 % (42.0-75.0); Mean Corpuscular HGB CONC 32.3 g/dL (32.0-36.0); Mean Corpuscular Hemoglobin 26.9 pg (27.0-31.0); Mean Corpuscular Volume 83.3 fL (78.0-98.0); Mean Platelet Volume 6.9 fL (7.4-10.4); Platelet Count 255 thou/uL (130-400); RBC Distribution Width 12.7 % (11.5-14.5); Red Blood Cell (RBC) Count 5.21 mill/uL (4.70-6.10); White Blood Cell (WBC) Count 6.3 thou/uL (4.8-10.8)
[2022-07-02] MEDS ORDERED: Iopamidol-370 76% 500 ML 1 ML ONE (09:43)
[2022-07-02 09:51] LABS: ALT (SGPT) 38 U/L (8-55); AST (SGOT) 17 U/L (5-34); Albumin 4.2 g/dL (3.5-5.0); Alkaline Phosphatase 144 U/L (40-110); Anion Gap 16 mmol/L (10-20); BUN (Urea Nitrogen) 13 mg/dL (8.9-20.6); Bilirubin, Total 0.5 mg/dL (0.2-1.2); Calc. Creatinine Clearance 0 mL/min (70-130); Calcium 9.1 mg/dL (7.8-10.44); Carbon Dioxide 23 mmol/L (22-29); Chloride 104 mmol/L (98-107); Estimated GFR 117; Globulin 2.8 g/dL (2.4-3.5); Glucose 106 mg/dL (70-105); Potassium 3.8 mmol/L (3.5-5.1); Sodium 139 mmol/L (136-145)
== END 2022-07-02 11:27 | disposition home or self-care (01) ==
LOC: ERS 08:19
DX: K61.1 Rectal abscess (principal); I10 Essential (primary) hypertension
CPT/HCPCS: 36415; 74177; 80053; 85025; 96360; Q9967

== ENCOUNTER 2022-07-11 15:34 | Outpatient (CLI) | payer OTHER ==
[2022-07-11 16:24] LABS: #Eosinphils 0.2 10x3/uL (0.0-0.5); #Monocytes 0.5 10x3/uL (0.0-1.1); #Neutrophils 5.8 10x3/uL (1.5-8.4); %Basophils 0.5 % (0.0-2.0); %Eosinophils 2.2 % (0.0-6.0); %Lymphocytes 24.2 % (18.0-47.0); %Monocytes 6.1 % (0.0-10.0); %Neutrophils 66.4 % (40.0-75.0); Hemoglobin 14.9 g/dL (13.5-17.5); Mean Corpuscular HGB CONC 32.5 g/dL (32.0-36.0); Mean Corpuscular Hemoglobin 26.8 pg (27.0-33.0); Mean Corpuscular Volume 82.6 fl (81.2-95.1); Platelet Count 313 10x3/uL (150-450); RBC Distribution Width 13.8 % (11.5-14.5); Red Blood Cell (RBC) Count 5.56 10x6/uL (4.32-5.72); White Blood Cell (WBC) Count 8.8 10x3/uL (3.5-10.5)
[2022-07-11 16:37] LABS: Anion Gap 13 mmol/L (10-20); BUN (Urea Nitrogen) 14 mg/dL (8.9-20.6); Calc. Creatinine Clearance 0 mL/min (70-130); Calcium 9.6 mg/dL (7.8-10.44); Carbon Dioxide 29 mmol/L (22-29); Chloride 104 mmol/L (98-107); Estimated GFR 109; Glucose 130 mg/dL (70-105); Potassium 4.3 mmol/L (3.5-5.1); Sodium 142 mmol/L (136-145)
== END 2022-07-11 15:35 | disposition home or self-care (01) ==
LOC: LABBT 15:34
PROVIDERS: ATTEND Orthopaedic Surgery Hand Surgery
DX: Z01.812 Encounter for preprocedural laboratory examination (principal); S52.20 Unspecified fracture of shaft of ulna; Z20.822 Contact with and (suspected) exposure to COVID-19
CPT/HCPCS: 80048; 85025; 87811

== ENCOUNTER 2022-07-13 08:26 | Day surgery (SDC) | payer OTHER ==
[2022-07-12 09:25] VITALS: BMI 36.1
[2022-07-13] MEDS ORDERED: Thrombin 5000 UNITS/5 ML VIAL ONE (09:30)
[2022-07-13] MEDS ORDERED: Neomycin-Polymyxin 1 ML AMP ONE (09:30)
[2022-07-13] MEDS ORDERED: Bacitracin Zinc Ointment 30 gm TUBE ONE (09:30)
[2022-07-13] MEDS ORDERED: Bupivacaine PF 0.5% 30 ML VIAL ONE (09:30)
[2022-07-13] MEDS ORDERED: Sodium Chloride 0.9% 100 ML ONE (09:55)
[2022-07-13] MEDS ORDERED: CEFAZOLIN 2 GM VIAL ONE (09:55)
[2022-07-13] MEDS ORDERED: fentaNYL Citrate/PF 100 MCG/2 ML SYRINGE ONE (10:04)
[2022-07-13] MEDS ORDERED: PROPOFOL 200 MG/20 ML VIAL ONE (10:18)
[2022-07-13] MEDS ORDERED: Dexamethasone 20 MG/5 ML VIAL ONE (10:18)
[2022-07-13] MEDS ORDERED: Ketorolac Tromethamine 30 MG/ML VIAL ONE (10:18)
[2022-07-13] MEDS ORDERED: Ondansetron PF 4 MG/2 ML Vial ONE (10:18)
[2022-07-13] MEDS ORDERED: ePHEDrine 50 MG/ML VIAL ONE (10:18)
[2022-07-13] MEDS ORDERED: Lidocaine 1% MPF 2 ML VIAL ONE (10:18)
== END 2022-07-13 14:58 | disposition home or self-care (01) ==
LOC: SDC 08:26
PROVIDERS: ATTEND Orthopaedic Surgery Hand Surgery
PROC: 0PUL07Z Supplement Left Ulna with Autologous Tissue Substitute, Open Approach (ICD-10-PCS; principal; 2022-07-13)
PROC: 0PSL04Z Reposition Left Ulna with Internal Fixation Device, Open Approach (ICD-10-PCS; principal; 2022-07-13)
DX: S52.202K Unspecified fracture of shaft of left ulna, subsequent encounter for closed fracture with nonunion (principal); T84.84XA Pain due to internal orthopedic prosthetic devices, implants and grafts, initial encounter; I10 Essential (primary) hypertension; Z79.82 Long term (current) use of aspirin; Z79.899 Other long term (current) drug therapy
CPT/HCPCS: 76000; C1713; J0690; J3490; S0020

== ENCOUNTER 2022-07-26 11:02 | Outpatient (CLI) | payer OTHER | END 2022-07-26 11:03 | disposition home or self-care (01) | LOC: LABBT 11:02 | PROVIDERS: ATTEND Orthopaedic Surgery | DX: S72.92XA Unspecified fracture of left femur, initial encounter for closed fracture (principal); Z20.822 Contact with and (suspected) exposure to COVID-19 | CPT/HCPCS: 87811 ==

== ENCOUNTER 2022-07-30 10:19 | Observation (INO) | payer OTHER ==
[2022-07-27 10:04] VITALS: BMI 35.4
[2022-07-30] MEDS ORDERED: Sodium Chloride 0.9% 100 ML ONE (12:21)
[2022-07-30] MEDS ORDERED: CEFAZOLIN 2 GM VIAL ONE (12:21)
[2022-07-30] MEDS ORDERED: fentaNYL Citrate/PF 100 MCG/2 ML SYRINGE ONE ×2 (12:28→15:34)
[2022-07-30] MEDS ORDERED: Dexamethasone 20 MG/5 ML VIAL ONE (13:01)
[2022-07-30] MEDS ORDERED: PROPOFOL 200 MG/20 ML VIAL ONE (13:01)
[2022-07-30] MEDS ORDERED: Lidocaine 1% MPF 2 ML VIAL ONE (13:01)
[2022-07-30] MEDS ORDERED: Ondansetron PF 4 MG/2 ML Vial ONE (13:01)
[2022-07-30] MEDS ORDERED: HYDROmorphone 2 MG/ML VIAL ONE (14:34)
[2022-07-30] MEDS ORDERED: Ondansetron PF 4 MG/2 ML Vial IVP PRN (15:06)
[2022-07-30] MEDS ORDERED: PHARMACY TO RENALLY ADJUST ABX FS SCH (15:15)
[2022-07-30] MEDS: Morphine 2 MG/ML VIAL SLOW IVP PRN ×2 (16:24→18:21)
[2022-07-30] MEDS: HYDROcodone/Acetaminophen 10/325 mg Tablet PO PRN ×2 (16:25→22:43)
[2022-07-30] MEDS: CEFAZOLIN 2 GM in Sodium Chloride 0.9% 100 ML IVPB SCH (21:08)
[2022-07-30] MEDS: Aspirin 81 mg Enteric Coated Tablet PO SCH (21:08)
[2022-07-31] MEDS: HYDROcodone/Acetaminophen 10/325 mg Tablet PO PRN ×3 (04:28→12:25)
[2022-07-31] MEDS: CEFAZOLIN 2 GM in Sodium Chloride 0.9% 100 ML IVPB SCH (04:29)
[2022-07-31 05:27] LABS: #Lymphocytes 1.3 thou/uL (1.20-3.40); #Monocytes 0.7 thou/uL (0.11-0.59); #Neutrophils 7.2 thou/uL (1.40-6.50); %Basophils 0.2 % (0.0-1.0); %Eosinophils 0.3 % (0.0-10.0); %Lymphocytes 13.8 % (21.0-51.0); %Monocytes 7.1 % (0.0-10.0); %Neutrophils 78.7 % (42.0-75.0); Mean Corpuscular HGB CONC 32.9 g/dL (32.0-36.0); Mean Corpuscular Hemoglobin 27.9 pg (27.0-31.0); Mean Corpuscular Volume 84.9 fL (78.0-98.0); Mean Platelet Volume 6.9 fL (7.4-10.4); Platelet Count 275 thou/uL (130-400); RBC Distribution Width 12.7 % (11.5-14.5); Red Blood Cell (RBC) Count 3.93 mill/uL (4.70-6.10); White Blood Cell (WBC) Count 9.1 thou/uL (4.8-10.8)
[2022-07-31] MEDS: Aspirin 81 mg Enteric Coated Tablet PO SCH (08:54)
[2022-07-31 11:59] VITALS: BP 146/82; TEMP 98
== END 2022-07-31 14:45 | disposition home or self-care (01) ==
LOC: SDC 10:19 → SURG A 16:09
PROVIDERS: ADMIT Orthopaedic Surgery; ATTEND Orthopaedic Surgery
PROC: 0QS704Z Reposition Left Upper Femur with Internal Fixation Device, Open Approach (ICD-10-PCS; principal; 2022-07-30)
DX: S72.352K Displaced comminuted fracture of shaft of left femur, subsequent encounter for closed fracture with nonunion (principal); I10 Essential (primary) hypertension; V89.2XXD Person injured in unspecified motor-vehicle accident, traffic, subsequent encounter; Z79.899 Other long term (current) drug therapy
CPT/HCPCS: 36415; 76000; 85025; 96374; 96375; 96376; C1713; G0378; J0690; J1100; J1170; J2270; J2405; J2704; J3490

== ENCOUNTER 2023-02-15 13:13 | Outpatient (CLI) | payer OTHER | END 2023-02-15 13:14 | disposition home or self-care (01) | LOC: BICCT 13:13 | PROVIDERS: ATTEND Physician Assistant Surgical | DX: S72.322K Displaced transverse fracture of shaft of left femur, subsequent encounter for closed fracture with nonunion (principal); M85.852 Other specified disorders of bone density and structure, left thigh ==

== ENCOUNTER 2023-03-01 11:47 | Outpatient (CLI) | payer OTHER ==
[2023-03-01 14:31] LABS: #Eosinphils 0.2 10x3/uL (0.0-0.5); #Monocytes 0.5 10x3/uL (0.0-1.1); #Neutrophils 5.2 10x3/uL (1.5-8.4); %Basophils 0.2 % (0.0-2.0); %Eosinophils 2.5 % (0.0-6.0); %Lymphocytes 29.2 % (18.0-47.0); %Monocytes 6.2 % (0.0-10.0); %Neutrophils 61.5 % (40.0-75.0); Hemoglobin 15.4 g/dL (13.5-17.5); Mean Corpuscular HGB CONC 32.9 g/dL (32.0-36.0); Mean Corpuscular Hemoglobin 27.9 pg (27.0-33.0); Mean Corpuscular Volume 84.9 fl (81.2-95.1); Mean Platelet Volume 9.8 fl (7.4-10.4); Platelet Count 282 10x3/uL (150-450); RBC Distribution Width 12.7 % (11.5-14.5); Red Blood Cell (RBC) Count 5.51 10x6/uL (4.32-5.72); White Blood Cell (WBC) Count 8.4 10x3/uL (3.5-10.5)
[2023-03-01 15:04] LABS: Anion Gap 17 mmol/L (10-20); BUN (Urea Nitrogen) 14 mg/dL (8.9-20.6); Calc. Creatinine Clearance 0 mL/min (70-130); Calcium 9.5 mg/dL (7.8-10.44); Carbon Dioxide 21 mmol/L (22-29); Chloride 104 mmol/L (98-107); Estimated GFR 113; Glucose 85 mg/dL (70-105); Sodium 138 mmol/L (136-145)
== END 2023-03-01 11:48 | disposition home or self-care (01) ==
LOC: LABBT 11:47
PROVIDERS: ATTEND Specialist
DX: Z01.812 Encounter for preprocedural laboratory examination (principal); K60.3 Anal fistula
CPT/HCPCS: 80048; 85025; 93005; 93010

== ENCOUNTER 2023-03-07 11:46 | Day surgery (SDC) | payer OTHER ==
[2023-03-01 12:52] VITALS: BMI 36.7
[2023-03-07] MEDS ORDERED: Ketorolac Tromethamine 30 MG/ML VIAL ONE (12:22)
[2023-03-07] MEDS ORDERED: Acetaminophen 500 MG TAB ONE (12:22)
[2023-03-07] MEDS ORDERED: Bupivacaine/Epinephrine 0.25% 30 ML VIAL ONE (14:07)
[2023-03-07] MEDS ORDERED: Methylene Blue 50 MG/10 ML AMPUL ONE (14:07)
[2023-03-07] MEDS ORDERED: Midazolam HCl 2 mg/2 ml Vial ONE (14:10)
[2023-03-07] MEDS ORDERED: fentaNYL PF 100 MCG/2 ML SYRINGE ONE (14:10)
[2023-03-07] MEDS ORDERED: Sodium Chloride 0.9% 100 ML ONE (14:16)
[2023-03-07] MEDS ORDERED: CEFAZOLIN 2 GM VIAL ONE (14:16)
[2023-03-07] MEDS ORDERED: PROPOFOL 200 MG/20 ML VIAL ONE (14:28)
[2023-03-07] MEDS ORDERED: Ondansetron PF 4 MG/2 ML Vial ONE (14:28)
[2023-03-07] MEDS ORDERED: Dexamethasone 20 MG/5 ML VIAL ONE (14:28)
[2023-03-07] MEDS ORDERED: Lidocaine 1% PF 5 ML VIAL ONE (14:28)
[2023-03-07] MEDS ORDERED: HYDROcodone/Acetaminophen 5/325 mg Tablet ONE (16:22)
== END 2023-03-07 17:25 | disposition home or self-care (01) ==
LOC: SDC 11:46
PROVIDERS: ATTEND Specialist
DX: K60.3 Anal fistula (principal); L98.9 Disorder of the skin and subcutaneous tissue, unspecified; I10 Essential (primary) hypertension; Z79.899 Other long term (current) drug therapy
CPT/HCPCS: 88305; 88342; J1100; J1885; J2250; J2405; J2704; J3490; Q9968

== ENCOUNTER 2023-12-22 11:35 | Emergency (ER) | payer BC, OTHER | END 2023-12-22 13:01 | disposition home or self-care (01) | LOC: ERS 11:35 | DX: G51.0 Bell's palsy (principal); I10 Essential (primary) hypertension; Z79.899 Other long term (current) drug therapy | CPT/HCPCS: 99284 ==